=== PATIENT | female | born 1990 | race Caucasian/White ===

== ENCOUNTER 2019-09-02 18:13 | Emergency (ER) | payer BC, OTHER ==
[~2019-09-02] VITALS: Ht 162.6 cm; Wt 61.1 kg
[2019-09-02 18:22] VITALS: BP 132/75
== END 2019-09-02 20:16 | disposition home or self-care (01) ==
LOC: ED 20:00
DX: S61.213A Laceration without foreign body of left middle finger without damage to nail, initial encounter (principal); R55 Syncope and collapse; W26.0XXA Contact with knife, initial encounter; Y93.G3 Activity, cooking and baking; Y92.000 Kitchen of unspecified non-institutional (private) residence as the place of occurrence of the external cause; Y99.8 Other external cause status
CPT/HCPCS: 93005; 99283